=== PATIENT | female | born 1955 | race Caucasian/White ===

== ENCOUNTER 2020-06-27 12:31 | Emergency (ER) | payer OTHER, SELFPAY ==
--- NOTE | ~2020-06-27 | XR_ITS ---
EXAMINATION: XR chest 2V DATE: 06/27/2020 13:16 INDICATION: Abnormal breath sounds. Prior lung transplant. TECHNIQUE: frontal and lateral views of the chest were obtained. COMPARISON: Chest radiograph dated 02/01/2019 FINDINGS: There are new small bilateral pleural effusions, left greater than right. Chronic linear opacities in the bilateral lower lung zones consistent with atelectasis/scarring likely related to prior lung tra nsplant. No pulmonary edema or pneumothorax. Heart size is normal. Transverse sternotomy wires. Chron ic compression fractures with change of prior vertebroplasty at T5, T6, T8 and T9 and without vertebr oplasty at L2. Lower cervical anterior spinal fusion with interbody bone graft cages and plate and sc rew fixation likely at C5-C7. IMPRESSION: 1. Chronic linear opacities in the bilateral lower lung zones likely atelectasis/scarring related to prior lung transplantation. 2. New small bilateral pleural effusions left greater than right with associated basilar atelectasis although pneumonia not excludable. Reviewed, dictated and finalized at location A. IMPRESSION: 1. Chronic linear opacities in the bilateral lower lung zones likely atelectasi s/scarring related to prior lung transplantation. 2. New small bilateral pleural effusions left greater than right with associate d basilar atelectasis although pneumonia not excludable.
[2020-06-27 12:48] VITALS: BP 116/81; PULSE 71; RESP 16; TEMP 37.3; O2SAT 94
--- NOTE | 2020-06-27 12:57 | ED.FEMALEGU ---
HPI - Female Genitourinary General Chief complaint: Urogenital-Female Stated complaint: possible kidney infection Time Seen by Provider: 06/27/20 12:57 Source: patient and RN notes reviewed Mode of arrival: ambulatory Limitations: no limitations History of Present Illness HPI Narrative: 65-year-old female with history of double lung transplant presents with concern for fatigue, nausea, loss of appetite, urinary frequency, suprapubic pain, lower back pain. Reports symptoms started 2 days ago denies vomiting. Denies dysuria, hematuria MD elicited complaint: other (Urine frequency) Related Data Home Medications Medication Instructions Recorded Confirmed albuterol sulfate 2 inh INHALATION Q4-6H PRN 06/27/20 06/27/20 amlodipine 5 mg DAILY 06/27/20 06/27/20 aspirin 81 mg DAILY 06/27/20 06/27/20 atorvastatin 10 mg DAILY 06/27/20 06/27/20 atovaquone 1,500 mg DAILY 06/27/20 06/27/20 azathioprine 100 mg HS 06/27/20 06/27/20 carvedilol 25 mg BID 06/27/20 06/27/20 cholecalciferol (vitamin D3) 50 mcg DAILY 06/27/20 06/27/20 [Vitamin D3] clonazepam 0.5 mg DAILY 06/27/20 06/27/20 escitalopram oxalate 10 mg DAILY 06/27/20 06/27/20 loratadine 10 mg DAILY 06/27/20 06/27/20 oxybutynin chloride 2.5 mg BID 06/27/20 06/27/20 pantoprazole 40 mg PO DAILY 06/27/20 06/27/20 prednisone 10 mg DAILY 06/27/20 06/27/20 pregabalin 50 mg BID 06/27/20 06/27/20 tacrolimus 0.5 mg DAILY 06/27/20 06/27/20 Allergies Allergy/AdvReac Type Severity Reaction Status Date / Time hydromorphone AdvReac Unknown SEVERE Verified 06/27/20 12:36 HEADACHES Review of Systems Review of Systems: Narrative: CONSTITUTIONAL: Denies malaise, chills, sweats, or fever. Reports fatigue EYES: Denies visual changes, redness, or discharge. ENT: Denies rhinorrhea, congestion, sinus pain, otalgia or sore throat. CARDIOVASCULAR: Denies chest pain, palpitations, or edema. RESPIRATORY: Denies cough or dyspnea. GASTROINTESTINAL: Denies abdominal pain, vomiting, diarrhea. Reports nausea GENITOURINARY: Denies dysuria or hematuria. Reports urine frequency SKIN: Denies rash or itching. MUSCULOSKELETAL: Reports bilateral low back pain. Denies joint pain, or myalgia. NEUROLOGIC: Denies numbness, weakness, or headache. All systems reviewed & are unremarkable except as noted in HPI and below PMFSH Social History Social History Gender identity (if verbalized by the patient): Female Comments At time of signature, agree with nursing past medical, surgical, social and family history. There is no relevant family history pertinent to the presenting complaint Exam Narrative: Exam Narrative: GENERAL: Well-appearing, well-nourished, and in no acute distress. HEAD: Normocephalic, atraumatic. EYES: PERRLA, conjunctivae clear, and EOMI. No nystagmus. ENT: Nares clear. Mucous membranes moist. TM pearly quiroga with sharp light reflex bilaterally; no tragal tenderness. Oropharynx without erythema or lesions. Tonsils not enlarged and without exudate. NECK: Supple. No lymphadenopathy. No jugular venous distension CHEST: No respiratory distress. Left upper lobe crackles, otherwise clear to auscultation. No bony deformities, no asymmetry. Speaks in full sentences. HEART: Regular rate and rhythm. No murmur heard. Normal peripheral pulses. ABDOMEN: Soft, nontender, nondistended, normal active bowel sounds, no palpable masses. EXTREMITIES: Normal range of motion. No edema. Normal strength and sensation. SKIN: Warm, dry, no rash. NEURO: Alert and oriented x3. PSYCH: Normal mood and affect Course Course Emergency Course: Patient is aware of diagnosis, understands and agrees to treatment plan. Anticipatory guidance given. Patient agrees to follow-up as directed and is aware of reasons to seek care at the emergency department. Portions of this record may have been created with voice recognition software Reevaluation(s) Reevaluation #1: Discussed with patient urinalysis results, indeterminate, need fo
== END 2020-06-27 14:00 | disposition home or self-care (01) ==
PROVIDERS: Emergency Provider Nurse Practitioner
DX: R35.0 Frequency of micturition (principal); R10.30 Lower abdominal pain, unspecified; M54.5 Low back pain; J90 Pleural effusion, not elsewhere classified; J98.11 Atelectasis; E78.00 Pure hypercholesterolemia, unspecified; I10 Essential (primary) hypertension; K21.9 Gastro-esophageal reflux disease without esophagitis; Z94.2 Lung transplant status; E89.0 Postprocedural hypothyroidism; Z85.828 Personal history of other malignant neoplasm of skin; F41.9 Anxiety disorder, unspecified; F32.9 Major depressive disorder, single episode, unspecified
CPT/HCPCS: 71046; 81003; 87086; 99213; G0463

== ENCOUNTER 2021-03-04 14:03 | Emergency (ER) | payer OTHER, SELFPAY ==
--- NOTE | 2021-03-04 14:08 | ED.FEMALEGU ---
HPI - Female Genitourinary General Chief complaint: Urogenital-Female Stated complaint: UTI Time Seen by Provider: 03/04/21 14:09 Source: patient and RN notes reviewed Mode of arrival: ambulatory Limitations: no limitations History of Present Illness HPI Narrative: 66-year-old female presents to the [facility] with complaints of I have a UTI. 3 to 4 days of urinary frequency, urgency. Also reports left lower quadrant and suprapubic pain. States that when she does try to urinate nothing comes out. A little lower abdominal cramping. Lower back pain. Denies fevers, chest pain, shortness of breath. Has felt nauseous without vomiting Related Data Home Medications Medication Instructions Recorded Confirmed amlodipine 03/04/21 aspirin 03/04/21 atovaquone 03/04/21 carvedilol 03/04/21 cholecalciferol (vitamin D3) 03/04/21 levothyroxine 03/04/21 oxybutynin chloride 03/04/21 pantoprazole PO 03/04/21 prednisone 03/04/21 pregabalin 03/04/21 tramadol mg 03/04/21 Allergies Allergy/AdvReac Type Severity Reaction Status Date / Time hydromorphone AdvReac Unknown SEVERE Verified 03/04/21 14:12 HEADACHES Review of Systems Review of Systems: Narrative: CONSTITUTIONAL: Denies fever, chills, or sweats. CARDIOVASCULAR: Denies chest pain, palpitations, or edema. RESPIRATORY: Denies cough or dyspnea. GASTROINTESTINAL: Reports left lower and suprapubic abdominal pain with nausea. Reports having bowel movement issues with some frequency. Denies vomiting GENITOURINARY: Reports dysuria without hematuria. SKIN: Denies rash or itching. MUSCULOSKELETAL: Reports lower back pain bilaterally. Denies joint pain, or myalgia. NEUROLOGIC: Denies headache, numbness, or weakness. PSYCHIATRIC: Denies anxiety or depression. All other systems reviewed are negative, except as documented in HPI. [facility] Surgical History Surgical History (Updated 03/04/21 @ 14:13 by Kiara Kirkland) Lung transplanted Social History Social History Gender identity (if verbalized by the patient): Female Comments At the time of my signature, I reviewed and agree with the nursing past medical, surgical, social, and family history. There is no relevant family history pertinent to the patient complaint. Exam Narrative: Exam Narrative: GENERAL: This is a well-nourished, well-developed patient, in no apparent distress. HEAD: normocephalic, atraumatic. EYES: PERRL. Sclera clear/white. Vision is grossly intact. EARS: External ears normal. NOSE: External nose normal. NECK: Neck supple, non-tender. CARDIOVASCULAR: Regular rate and rhythm without murmurs, gallops, or rubs. RESPIRATORY: Clear to auscultation. Breath sounds equal bilaterally. No wheezes, rales, or rhonchi. GASTROINTESTINAL: Abdomen soft. Left lower quadrant tenderness with mild distended. Bowel sounds are active. SKIN: warm, Dry, intact with no suspicious lesions or rash, good texture and turgor. NEURO: awake, alert, and oriented to person, place and time. There were no obvious focal neurologic abnormalities. EXTREMITIES: No joint tenderness, effusion, or edema noted. BACK: Nontender without deformity. Course Vital Signs Vital signs: Vital Signs Temperature 98.5 F 03/04/21 14:12 Pulse Rate 67 03/04/21 14:12 Respiratory Rate 18 03/04/21 14:12 Blood Pressure 113/73 03/04/21 14:12 Pulse Oximetry 100 03/04/21 14:12 Temperature 98.5 F 03/04/21 14:27 Pulse Rate 67 03/04/21 14:27 Respiratory Rate 18 03/04/21 14:27 Blood Pressure 113/73 03/04/21 14:27 Pulse Oximetry 100 03/04/21 14:27 Reviewed Transfer Transfered to: [facility] Transfer rationale: Patient states that she believes she was having a UTI, urine dip was clean. Patient on exam had increased left lower quadrant pain. Concern for colitis or diverticulitis, unable to do labs or CT scan. Transferred patient to her reque
[2021-03-04 14:12] VITALS: BP 113/73; PULSE 67; RESP 18; TEMP 36.9; O2SAT 100
[2021-03-04 14:19] VITALS: BP 129/64; PULSE 66; RESP 22
[2021-03-04 14:27] VITALS: BP 113/73; PULSE 67; RESP 18; TEMP 36.9; O2SAT 100
== END 2021-03-04 14:29 | disposition short-term general hospital (02) ==
PROVIDERS: Emergency Provider Nurse Practitioner
DX: R10.32 Left lower quadrant pain (principal); R35.0 Frequency of micturition; Z94.2 Lung transplant status; E78.00 Pure hypercholesterolemia, unspecified; I10 Essential (primary) hypertension; K21.9 Gastro-esophageal reflux disease without esophagitis; E89.0 Postprocedural hypothyroidism; Z85.828 Personal history of other malignant neoplasm of skin
CPT/HCPCS: 81003; 99212; G0463

== ENCOUNTER 2021-03-29 18:00 | Emergency (ER) | payer OTHER, SELFPAY ==
--- NOTE | ~2021-03-29 | CT_ITS ---
EXAMINATION: CT brain wo con DATE: 03/29/2021 18:08 INDICATION: Status post fall. Altered mental status. TECHNIQUE: Computed tomography (CT) of the head was performed without intravenous contrast. The dose- length product was 605.33 mGy-cm. Automated exposure control and iterative reconstruction technique w ere employed. COMPARISON: CT dated 05/18/2015 FINDINGS: There is a focal right frontal parenchymal hemorrhage. There is extensive subarachnoid hemo rrhage bilaterally involving the interhemispheric fissure, basilar cisterns and right sylvian fissure . No significant ventriculomegaly or midline shift. No depressed skull fractures. Paranasal sinuses a nd mastoids are pneumatized. Midline sagittal images are unremarkable. No evidence for herniation. IMPRESSION: 1. Extensive bilateral subarachnoid hemorrhage with focal right frontal parenchymal hemorrhage. Dr. Radu Handley discussed with Dr. Ashok Marques MD at 03/29/2021 18:11 CDT. Reviewed, dictated and finalized at location A. IMPRESSION: 1. Extensive bilateral subarachnoid hemorrhage with focal right frontal parench ymal hemorrhage. Dr. Radu Handley discussed with Dr. Ashok Marques MD at 03/29/2021 18:11 CDT.
[2021-03-29 18:09] VITALS: BP 160/90; PULSE 62; RESP 15; TEMP 36.9; O2SAT 99
--- NOTE | 2021-03-29 18:26 | ED.FALL ---
HPI - Fall General Chief Complaint: Fall <Carmen Menezes PA-C - Last Filed: 03/29/21 19:33> Stated Complaint: FALL/HI/NECK PAIN <ELLE West Last Filed: 03/29/21 19:33> Time Seen by Provider: 03/29/21 18:12 <Carmen Menezes PA-C - Last Filed: 03/29/21 19:33> Source: patient, family and EMS <ELLE West Last Filed: 03/29/21 19:33> Mode of arrival: EMS <ELLE West Last Filed: 03/29/21 19:33> Limitations: clinical condition <ELLE West Last Filed: 03/29/21 19:33> History of Present Illness HPI Narrative: Is a 66-year-old female that presents to the emergency department after a fall today with headache and neck pain. Per EMS and family patient had a fall a couple of hours ago. Reportedly they think she hit her head on a door. Patient reports she was feeling shaky and this caused her to fall. Reports current headache and neck pain. Also had a couple episodes of emesis while in route. Patient also with ecchymosis and swelling of the left eye. Patient denies vision changes, chest pain, shortness of breath, focal numbness or weakness. <Carmen Menezes PA-C - Last Filed: 03/29/21 19:33> Related Data Home Medications: Home Medications Medication Instructions Recorded Confirmed amlodipine 03/04/21 aspirin 03/04/21 atovaquone 03/04/21 carvedilol 03/04/21 cholecalciferol (vitamin D3) 03/04/21 levothyroxine 03/04/21 oxybutynin chloride 03/04/21 pantoprazole PO 03/04/21 prednisone 03/04/21 pregabalin 03/04/21 tramadol mg 03/04/21 <ELLE West Last Filed: 03/29/21 19:33> Allergies/Adverse Reactions: Allergies Allergy/AdvReac Type Severity Reaction Status Date / Time hydromorphone AdvReac Unknown SEVERE Verified 03/04/21 14:12 HEADACHES <Carmen Menezes PA-C - Last Filed: 03/29/21 19:33> Review of Systems Review of Systems: Narrative: CONSTITUTIONAL: Denies fever EYES: Denies visual changes CARDIOVASCULAR: Denies chest pain RESPIRATORY: Denies dyspnea. GASTROINTESTINAL: Reports nausea, vomiting MUSCULOSKELETAL: Reports joint pain, and myalgia. NEUROLOGIC: Reports headache. Denies numbness, or weakness. <Carmen Menezes PA-C - Last Filed: 03/29/21 19:33> All systems reviewed & are unremarkable except as noted in HPI and below <Carmen Menezes PA-C - Last Filed: 03/29/21 19:33> [facility] Past Medical History Medical History: Medical History (Updated 03/29/21 @ 18:52 by Carmen Menezes PA-C) History of DVT (deep vein thrombosis) History of hyperlipidemia History of hypertension History of hypothyroidism <Carmen Menezes PA-C - Last Filed: 03/29/21 19:33> Surgical History Surgical History: Surgical History (Updated 03/04/21 @ 14:13 by Kiara Kirkland) Lung transplanted <Carmen Menezes PA-C - Last Filed: 03/29/21 19:33> Social History Social History: Social History Gender identity (if verbalized by the patient): Female <Carmen Menezes PA-C - Last Filed: 03/29/21 19:33> Exam Narrative: Exam Narrative: GENERAL: Drowsy, but arousable HEAD: Normocephalic. Ecchymosis and edema about the left upper and lower eyelid EYES: PERRLA and EOMI. ENT: Nares clear, no rhinorrhea or epistaxis. Mucous membranes moist. Oropharynx without tonsillar hypertrophy exudate or other lesions. Bilateral TMs pearly quiroga non-bulging NECK: Supple. No adenopathy or masses. C-collar in place CHEST: Clear to auscultation. No respiratory distress. No wheezes rales or rhonchi HEART: Regular rate and rhythm. No murmur heard. Normal peripheral pulses. ABDOMEN: Soft, nontender, nondistended, normal active bowel sounds. BACK: No midline thoracic or lumbar spine tenderness EXTREMITIES: Normal range of motion. No edema or obvious deformity. Strength equal in bilateral upper and lower extremities (5/5) SKIN: Warm, dry, no rash. [place]
--- NOTE | 2021-03-29 18:27 | PC.NURSE ---
[facility] called for standby closest bird for is 45min ARCH 5 min ETA for standby
[2021-03-29] MEDS: ONDANSETRON INJ 4 MG/2 ML VIAL (18:30)
--- NOTE | 2021-03-29 18:39 | ECG_ITS ---
Measurements Intervals Imperial Rate: 71 P: 47 MA: 128 QRS: 47 QRSD: 84 T: 75 QT: 389 QTc: 425 Interpretive Statements SINUS RHYTHM POSSIBLE LEFT ATRIAL ENLARGEMENT BORDERLINE ST-T WAVE ABNORMALITY- HIGH LATERAL LEADS BASELINE ARTIFACT- I, II, III, AVR, AVF, V3-V6 BORDERLINE ECG Electronically Signed On 03-29-2021 19:02:36 CDT by Dimitris Queen D.O.
[2021-03-29] MEDS: ONDANSETRON INJ 4 MG/2 ML VIAL IV PUSH (19:16)
[2021-03-29] MEDS: LABETALOL HCL INJ 100 MG/20 ML VIAL 10 MG IV PUSH (19:17)
[2021-03-29] MEDS: SODIUM CHLORIDE 0.9% IV 1,000 ML 125 ML IV CONT (19:17)
[2021-03-29 19:18] VITALS: BP 169/82; PULSE 59; RESP 16; O2SAT 100
--- NOTE | 2021-03-29 19:19 | PC.NURSE ---
Pt becoming increasingly more unresponsive. MD at bedside. MD wants to intubate at this time
[2021-03-29 19:24] VITALS: O2SAT 100
--- NOTE | 2021-03-29 19:27 | PC.NURSE ---
Dr. Ambrocio intubating at this time 1923 16mg Etomidate given 1923 50 mg Rocc 7.5 tube, 21 at the teeth. good color change, bilateral breath sounds
[2021-03-29 19:31] VITALS: BP 161/80; PULSE 69; RESP 18; O2SAT 100
--- NOTE | 2021-03-29 20:30 | PC.NURSE ---
Normal saline continues to be infused at time of transfer
== END 2021-03-29 20:30 | disposition short-term general hospital (02) ==
PROVIDERS: Emergency Provider Emergency Medicine
DX: S06.6X0A Traumatic subarachnoid hemorrhage without loss of consciousness, initial encounter (principal); Z79.82 Long term (current) use of aspirin; Z86.718 Personal history of other venous thrombosis and embolism; E78.5 Hyperlipidemia, unspecified; I10 Essential (primary) hypertension; E03.9 Hypothyroidism, unspecified; Z94.2 Lung transplant status; Z79.01 Long term (current) use of anticoagulants; R94.31 Abnormal electrocardiogram [ECG] [EKG]; W01.198A Fall on same level from slipping, tripping and stumbling with subsequent striking against other object, initial encounter
CPT/HCPCS: 31500; 70450; 93005; 96361; 96374; 96375; 96376; 99291; J2405; J7030; L0140